=== PATIENT | male | born 1940 | race Caucasian/White ===

== ENCOUNTER → 2017-02-15 | Day surgery (SDC) | payer OTHER ==
[2017-01-18 08:49] VITALS: Ht 170.2 cm; Wt 87.7 kg
[~2017-02-15] VITALS: Ht 170.2 cm; Wt 87.7 kg
[~2017-02-15] MED LIST: ACETAMINOPHEN 325 MG TAB PO PRN; ASPI81TA28 PO; ATROPINE SULFATE 0.1 MG/ML 5ML SYR IV PRN; ATROPINE SULFATE 1% OP SOLN 2 ML BTL ONE; AcetylCHOLine CHL OP SOL 1:100 2 ML BTL ONE; BRIMONIDINE TART 0.2% OP SOLN PER DROP CHARGE ONE; BSS 500ML IRRIG ONE; BSS FLUSH ONE; CARB200T PO; CARV3.122 PO; CLOP1TAB15 PO; EpHEDrine SULFATE INJ 50 MG/ML AMP IV PRN; EpINEphrine INJ 1MG/ML AMP 1 MG/ML AMP ONE; FAMO20TA11 PO; HEALON 10MG/ML 0.85 ML SYR INSTIL ONE; HYT/2 PO; ISOS40TA5 PO; LACTATED RINGER'S 1000ML 500 ML IV SCH; LIDOCAINE 3.5% OPH GEL PER APPLICATION CHARGE OPL SCH; LIDOCAINE 4% OP SOLN DROP CHARGE ONE; LIDOCAINE 4% OP SOLN DROP CHARGE OPL SCH; LIDOCAINE HCL 1% MPF 2 ML VIAL ONE; LSX40 PO; METF1000 PO; MIDAZOLAM HCL 1 MG/ML 2ML VIAL ONE; MOXIFLOXACIN OPH SOLN PER DROP CHARGE ONE; OFLO0.3S4 OPL; ONDANSETRON INJ 2 MG/ML 2 ML VIAL IV PRN; POTA10CA28 PO; POVIDONE-IODINE OP SOLN 30 ML BTL ONE; PRED1SUS3 OPL; PROPARACAINE 0.5% OP SOLN PER DROP CHARGE OPL SCH; PRVHFAIN INH; ROSU20TA PO; SODIUM CHLORIDE 0.9% 500ML IV SCH; TETRACAINE HCL (OPHTH) 60 DROPS/4 ML BTL OP ONE; TOBRAMYCIN/DEXAMETHASONE OPH OINT PER APPLN CHARGE ONE; TRAV0.00 OP
[2017-02-15] MEDS: MOXIFLOXACIN OPH SOLN PER DROP CHARGE OPL SCH ×3 (08:57→09:17)
--- NOTE | 2017-02-15 09:46 | History & Physical Bridge - [place] ---
H&P Re-Evaluation Bridge Note: I have examined the patient, reviewed the History & Physical and in the interval since the performance of the History & Physical I have noted the following changes of clinical significance: No changes noted
--- NOTE | 2017-02-15 11:39 | Discharge Instructions-SurgCtr ---
Discharge Instructions Date of Service Feb 15, 2017. Visit Reason for Visit: Left Eye Secondary Corneal Edema Discharge Discharge Diagnosis / Problem: corneal edema left eye Discharge Goals Goal(s): Improve function Medications Stopped Medications Name(s): Plavix stopped on 02/05 Activity Recommendations Activity Limitations: per Instructions/Follow-up section Lifting Limitations: none Anesthesia . Post Anesthesia Instructions: If you have had General Anesthesia or IV Sedation: * Do not drive today. * Resume driving when surgeon permits. * Do not make important decisions or sign legal documents today. * Call surgeon for: 1. Temperature elevations greater than 101 degrees F. 2. Uncontrollable pain. 3. Excessive bleeding. 4. Persistent nausea and vomiting. 5. Medication intolerance (nausea, vomiting or rash). * For nausea and vomiting use only clear liquids such as: tea, soda, bouillon until nausea subsides, then gradually increase diet as tolerated. * If you have any concerns or questions, call your surgeon's office. If physician is unavailable and it is an emergency, call 911 or go to the nearest emergency room. . Instructions / Follow-Up Instructions / Follow-Up ACTIVITY RECOMMENDATIONS: * Bedrest except for bathroom and meals (eyes to the vikki) MEDICATIONS: Resume previous medications unless instructed otherwise by your surgeon. Eye drops (today and tomorrow): Ofloxacin - one drop in operative eye every 2 hours while awake Prednisolone 1% - one drop in operative eye every 2 hours while awake SPECIAL CARE INSTRUCTIONS: * If any problems or concerns, please call Dr. Ortiz's office at . * Keep plastic shield taped over eye to sleep at night. * Keep plastic shield taped over eye except to administer eye drops. * Keep plastic shield on until office visit the following day. FOLLOW UP VISIT: Follow-up with Dr. Ortiz in the [place] office as scheduled. If not already scheduled, please call the office at . Diet Recommendations Home Diet: resume previous diet Procedures Procedures Performed: Left Eye Descements Stripping Automated Endoethelial Keratoplasty; Back Bench Pending Studies Studies pending at discharge: yes List of pending studies: cornea donor rim culture Medical Emergencies . Who to Call and When: Medical Emergencies: If at any time you feel your situation is an emergency, please call 911 immediately. . Non-Emergent Contact Non-Emergency issues call your: Case Packer . . "Provider Documentation" section prepared by Aniceto Ortiz. .
[2017-02-15 11:41] VITALS: TEMP 36.5
--- NOTE | 2017-02-15 11:49 | [facility] Operative Report ---
Operative Report Operative Date Feb 15, 2017. Pre-Operative Diagnosis Left Eye Secondary Corneal Edema Post-Operative Diagnosis Same Procedure(s) Performed Left Eye Descements Stripping Automated Endoethelial Keratoplasty; Back Bench Surgeon Dr. Ortiz Director Construction Services Surgeon(s) None Estimated Blood Loss None Findings corneal edema left eye Specimens A.) Culture Of Corneal Donor Rim Drains none Anesthesia local with sedation Complication(s) None Disposition Recovery Room / PACU Implants cornea donor graft Indications decreased vision left eye Description of Procedure After informed consent was obtained in the holding area, attention was first turned to the donor cornea. It was trephinated with an 7.5mm Lacy trephine by myself. It was then covered in optisol and set aside. The patient was then wheeled back to the operating room where cardiac monitoring leads and oxygen by nasal cannula was administered by Anesthesia. Gentle IV sedation was given, and the patient's left eye was prepped and draped in usual sterile fashion. A wire lid speculum was placed into the left eye and the operating microscope was swung into position. Using 0.12 forceps and a Supersharp blade a paracentesis port was made 3 o'clock hours away from the 3 o'clock position of the patient's left eye. 1% non-preserved Lidocaine was then injected into the anterior chamber for anesthesia. The previously used trephine was then inked and used to matt the host cornea. A 2.2 mm keratotome blade was then used to make a shelved clear corneal incision at the 3 o'clock position of the left eye. Healon was injected into the anterior chamber and a reversed Sinksy hook was used to score Descemets' membrane around the marked area. The Descemet's stripper was then used to remove the scored Descemets from within the marked area. The stromal appraiser irrigation tax was then used to roughen the periphery of the stripped stromal bed. Irrigation and aspiration handpiece was used to remove the residual viscoelastic material. The donor graft was then placed endothelial side up on the host cornea and a drop of endocoat was placed on it. It was then loaded into the Endoserter and the endoserter was used to inject the graft into the 4mm widened main incision. It was then unfolded underneath BSS and air and a single 10-0 nylon suture was placed through the primary incision. A complete air fill of the eye was achieved and held for 15 minutes after which time the interface was milked with a Marika Lasik Roller. Another 15 minutes elapsed after which time a partial air fluid exchange was done leaving behind a 80% air fill. Resure sealant was placed over the paracentesis and primary incision. Atropine , Vigamox, and tobradex ointment was placed on the eye. The speculum was removed from the eye and the eye was shielded. DISPOSITION: The patient tolerated the procedure well and was wheeled to the post anesthesia care unit in stable condition. I attest to the content of the Intraoperative Record and any orders documented therein. Any exceptions are noted below. I attest to the content of the Intraoperative Record and any orders documented therein. Any exceptions are noted below.
--- NOTE | 2017-02-15 12:12 | Anesthesia Progress Nt - [facility] ---
Anesthesia Post Op Note Date & Time Feb 15, 2017 at 12:11 Vital Signs Pain Intensity: 2 Vital Signs Past 12 Hours Date Time Temp Pulse Resp B/P (MAP) Pulse Ox O2 Delivery O2 Flow Rate FiO2 02/15/17 12:08 66 16 121/68 (85) 95 Room Air 02/15/17 11:41 36.5 65 16 136/71 (92) 94 Room Air 02/15/17 08:58 36.7 79 20 128/71 (90) 95 Room Air Notes Mental Status: alert / awake / arousable, participated in evaluation Pt Amnestic to Procedure: Yes Nausea / Vomiting: adequately controlled Pain: adequately controlled Airway Patency, RR, SpO2: stable & adequate BP & HR: stable & adequate Hydration State: stable & adequate Anesthetic Complications: no major complications apparent
[2017-02-15 12:34] VITALS: BP 135/81; PULSE 69; O2SAT 95
== END | disposition home or self-care (01) ==
LOC: X.SURG 08:09
PROVIDERS: ATTEND Ophthalmology
DX: H18.232 Secondary corneal edema, left eye (principal); E11.9 Type 2 diabetes mellitus without complications; I10 Essential (primary) hypertension; J45.909 Unspecified asthma, uncomplicated; G47.30 Sleep apnea, unspecified; Z79.82 Long term (current) use of aspirin; Z79.4 Long term (current) use of insulin; Z86.73 Personal history of transient ischemic attack (TIA), and cerebral infarction without residual deficits; Z83.3 Family history of diabetes mellitus; Z82.49 Family history of ischemic heart disease and other diseases of the circulatory system